=== PATIENT | male | born 1965 | race Hispanic/Latino ===

== ENCOUNTER 2017-08-07 16:00 | Emergency (ER) | payer SELFPAY ==
[2017-08-07] MEDS ORDERED: IBUPROFEN 600 MG TABLET ONE (16:33)
== END 2017-08-07 17:10 | disposition home or self-care (01) ==
LOC: EDH 16:00
DX: J09.X2 Influenza due to identified novel influenza A virus with other respiratory manifestations (principal); E11.9 Type 2 diabetes mellitus without complications; I10 Essential (primary) hypertension
CPT/HCPCS: 87804

== ENCOUNTER 2017-10-29 17:49 | Emergency (ER) | payer SELFPAY ==
[2017-10-29] MEDS ORDERED: ACETAMINOPHEN 325 MG TAB ONE (19:01)
[2017-10-29] MEDS ORDERED: ONDANSETRON HCL MDV 20ML 2 MG/ML VIAL ONE (19:01)
[2017-10-29] MEDS ORDERED: SODIUM CHLORIDE 0.9% 1000ML 1,000 ML IV ONE (19:01)
[2017-10-29 19:07] LABS: BASOPHILS % (AUTO) 0.1 % (0.0-5.0); EOSINOPHILS % (AUTO) 0.1 % (0.0-8.0); LYMPHOCYTES % (AUTO) 6.3 % (21.0-51.0); MEAN CORPUSCULAR HEMOGLOBIN 31.6 pg (27.0-33.0); MEAN CORPUSCULAR HGB CONC 35.5 g/dL (32.0-36.0); MEAN CORPUSCULAR VOLUME 89.1 fL (79-99); MONOCYTES % (AUTO) 3.8 % (3.0-13.0); NEUTROPHILS % (AUTO) 89.7 % (40.0-77.0); PLATELET COUNT (AUTO) 271 K/uL (130-400); RED BLOOD CELL COUNT(AUTO) 4.72 MIL/uL (4.50-6.20); RED CELL DISTRIBUTION WIDTH 13.6 % (11.0-15.5); WHITE BLOOD COUNT (AUTO) 13.1 K/uL (4.8-10.8)
[2017-10-29 19:14] LABS: CREATININE 1.1 mg/dL (0.5-1.5); POTASSIUM 4.2 mmol/L (3.5-5.1)
[2017-10-29 19:19] LABS: ALBUMIN 3.1 g/dL (3.5-5.0); BILIRUBIN,TOTAL 0.6 mg/dL (0.2-1.0)
== END 2017-10-29 20:15 | disposition home or self-care (01) ==
LOC: EDH 17:49
DX: R11.2 Nausea with vomiting, unspecified (principal); E11.65 Type 2 diabetes mellitus with hyperglycemia; R19.7 Diarrhea, unspecified; I10 Essential (primary) hypertension; Z79.82 Long term (current) use of aspirin; Z79.899 Other long term (current) drug therapy
CPT/HCPCS: 36415; 80053; 82948; 85025; 96361; 96374; 99284; J7030

== ENCOUNTER 2025-01-23 18:48 | Emergency (ER) | payer BC, MEDICAID ==
[~2025-01-23] VITALS: Ht 167.6 cm; Wt 78.9 kg
--- NOTE | 2025-01-23 18:58 | ERN ---
ED Note History of Present Illness Stated Complaint: DIZZINESS AND LOW BP Chief Complaint: Dizzy/Light Headed Time Seen by MD: 18:52 Dictation: PATIENT IS A 59-YEAR-OLD MALE COMING IN TODAY FROM [facility] WITH COMPLAINTS OF HAVING LOW BLOOD PRESSURE, 80/40 WHILE HE WAS AT HIS FAMILY'S HOUSE. HE STATES THE BLOOD PRESSURE WAS TAKEN WITH A BATTERY OPERATED WRIST MACHINE. STATES THEY WERE DOWN TO HER VISITING SAID THEY DID NOT GO TO THE HOSPITAL BECAUSE THEY DO NOT TAKE MEDICARE. HE STATES THEY LEFT A APPROXIMATE2 HOURS AGO AND CAME DIRECTLY TO THE HOSPITAL. STATES RIGHT NOW HE IS HAVING NO COMPLAINTS OF VOICE AT THIS TIME JUST WANTS TO BE CHECKED OUT. CURRENT BLOOD PRESSURE 140/80. Allergies: Coded Allergies: No Known Allergies (Unverified Allergy, Unknown, 07/12/23) Home Meds No Active Prescriptions or Reported Meds Past Medical History Past Medical History: Diabetes-Type II Additional Past Medical Hx: BLIND BILATERALLY Surgical History: Other Surgical History Other: RT KNEE Social History: Smokers, Lives with family RN Note Reviewed/Agreed w/PFSH: Yes Review of System Dictation CONSTITUTIONAL: NEGATIVE EXCEPT FOR HPI HEAD/FACE: NEGATIVE EXCEPT FOR HPI EENT: NEGATIVE EXCEPT FOR HPI RESPIRATORY: NEGATIVE EXCEPT FOR HPI GASTROINTESTINAL/ABDOMINAL: NEGATIVE EXCEPT FOR HPI GENITOURINARY: NEGATIVE EXCEPT FOR HPI MUSCULOSKELETAL: NEGATIVE EXCEPT FOR HPI INTEGUMENTARY: NEGATIVE EXCEPT FOR HPI NEUROLOGICAL/PSYCH: NEGATIVE EXCEPT FOR HPI LEGALLY BLIND/DIZZY HEMATOLOGIC/LYMPHATIC: NEGATIVE EXCEPT FOR HPI ALL SYSTEMS NEGATIVE, EXCEPT NOTED ABOVE. 13 POINT REVIEW OF SYSTEMS ASSESSED AND ALL NEGATIVE EXCEPT FOR ABOVE. Initial Vital Sign VS Vital Signs Date Time Temp Pulse Resp B/P (MAP) Pulse Ox O2 Delivery O2 Flow Rate FiO2 01/23/25 18:51 97.3 100 19 140/80 99 Room Air 0 Physical Exam Dictation VITAL SIGNS REVIEWED GENERAL APPEARANCE: ALERT, ORIENTED X 3, NO ACUTE DISTRESS, WELL DEVELOPED, NOURISHED. HEAD AND FACE: NON-TRAUMATIC. EYES: BLIND, CHRONIC EARS: PINNAS INTACT AND NO SIGNS OF TRAUMA OR ERYTHEMA EAR CANALS CLEAR AND NO DISCHARGE TM NO ERYTHEMA NOSE: NO DISCHARGE, NO BLEEDING. OROPHARYNX: MOUTH NORMAL, TONGUE PINK, PHARYNX CLEAR,NO ERYTHEMA, TONSILS NO EXUDATES, NO ABSCESSES NOTED, MUCOUS MEMBRANE MOIST NECK: SUPPLE, NON-TENDER, NO THYROMEGALY, NO MASSES, NO JVD, NO BRUITS BREAST:DEFERRED CHEST:NO TENDERNESS, NO CREPITUS, NO PARADOXICAL MOVEMENT, NO RETRACTIONS LUNGS:CLEAR, WELL-VENTILATED, SYMMETRIC, NO RALES, NO WHEEZING, NO RHONCHI, NO STRIDOR, GOOD BREATH SOUNDS BILATERALLY HEART: REGULAR RATE, REGULAR RHYTHM, NO MURMUR, NO GALLOPS VASCULAR: NO PERIPHERAL EDEMA, ABDOMEN: SOFT, POSITIVE BOWEL SOUNDS, NONDISTENDED, NO GUARDING, NONTENDER, NO REBOUND, NO MASSES NO HEPATOMEGALY, NO SPLENOMEGALY, NO BECKHAM'S SIGN, NO HERNIAS. RECTAL: DEFERRED GENITAL: DEFERRED NEUROLOGICAL: NORMAL SPEECH, MOTOR FUNCTION INTACT, SENSORY FUNCTION INTACT MUSCULOSKELETAL: NECK NONTENDER, FULL RANGE OF MOTION, BACK NONTENDER, FULL RANGE OF MOTION, EXTREMITIES: NONTENDER, FULL RANGE OF MOTION SKIN: COLOR PINK, DRY, NO TURGOR, NO RASH, NO LACERATIONS, NO ABRASIONS, NO CONTUSIONS. LYMPHATIC: DEFERRED Results (Laboratory/Radiology) Laboratory/Radiology Laboratory Tests Test 01/23/25 19:35 White Blood Count 9.0 K/uL (4.8-10.8) Red Blood Count 3.27 MIL/uL (4.50-6.20) L Hemoglobin 10.2 g/dL (14.0-18.0) L Hematocrit 31.0 % (42-54) L Mean Corpuscular Volume 94.8 fL (79-99) Mean Corpuscular Hemoglobin 31.2 pg (27.0-33.0) Mean Corpuscular Hemoglobin Concent 32.9 g/dL (32.0-36.0) Red Cell Distribution Width 13.9 % (11.0-15.5) Platelet Count 262 K/uL (130-400) Mean Platelet Volume 10.2 fL (7.5-10.5) Immature Granulocyte % (Auto) 0.2 % (0-1) Neutrophils (%) (Auto) 59.5 % (40.0-77.0) Lymphocytes (%) (Auto) 29.4 % (21.0-51.0) Monocytes (%) (Auto) 9.3 % (3.0-13.0) Eosinophils (%) (Auto) 1.2 % (0.0-8.0) Basophils (%) (Auto) 0.4 % (0.0-5.0) Neutrophils # (Auto) 5.3 K/uL (1.8-7.7) Lymphocytes # (Auto) 2.6 K/uL (1.0-4.8) Monocytes # (Auto) 0.8 K/uL (0.1-1.0) Eosinophils # (Auto) 0.11 K/uL (0.00-0.70) Basophils # (Auto) 0.04 K/uL (0.00-0.20) Absolute Immature Granulocyte (auto 0.02 K/uL (0-1) Nucleated Red Blood Cells 0.0 % (0.0-0.19) Sodium Level 138 mmol/L (136-145) Potassium Level 4.8 mmol/L (3.5-5.1) Chloride Level 103 mmol/L (101-111) Carbon Dioxide Level 25 mmol/L (21-32) Blood Urea Nitrogen 38 mg/dL (7-18) H Creatinine 2.3 mg/dL (0.5-1.3) H Glomerular Filtration Rate Calc 32 mL/min (>90) Random Glucose 105 mg/dL (70-105) Total Calcium 9.6 mg/dL (8.5-10.1) Magnesium Level 1.90 mg/dL (1.80-2.40) Troponin I High Sensitivity 4 ng/L (4-75) Labs Reviewed?: Yes EKG: (+) NSR EKG Comment: EKG NORMAL SINUS RHYTHM/HEART RATE 97/AXIS NORMAL/NO ECTOPY ED Course ED Course Orders Procedure Category Date Status Time Cbc With Differential LAB 01/23/25 Complete 18:55 12 Lead Ekg Tracing- EKG 01/23/25 Logged Technical 18:55 Magnesium LAB 01/23/25 Complete 18:55 Troponin I High LAB 01/23/25 Complete Sensitivity 18:55 Basic Metabolic Panel LAB 01/23/25 Complete 18:55 Vital Signs Date Time Temp Pulse Resp B/P (MAP) Pulse Ox O2 Delivery O2 Flow Rate FiO2 01/23/25 18:51 97.3 100 19 140/80 99 Room Air 0 2024/WITH PATIENT AND HIS SON AT LENGTH REGARDING CLINICAL FINDINGS. HE IS AWARE THAT HE HAS HAD AN ACUTE ON CHRONIC KIDNEY INJURY CURRENT GFR IS 32%. HE WAS ALSO MADE AWARE THAT WHEN HE WAS HERE JUNE 2023 IT WAS 98%. HE STATES HIS DOCTOR GAVE HIM DIURETICS BECAUSE HE WAS HAVING SOME SWELLING IN THE LEGS AND HE HAS BEEN TAKING HIM SINCE LAST YEAR. I RECOMMENDED STRONGLY TO ADMIT HIM TO THE HOSPITAL HOWEVER HE DECIDED HE DID NOT WANT TO STAY IN THE HOSPITAL AND WISHES TO GO HOME AND WE WILL FOLLOW UP WITH HIS PRIMARY CARE DOCTOR ON SUNDAY. I STRONGLY ADVISED HIM TO FOLLOW UP WITH HIS DOCTOR TAKE HER LABS WITH HIM AND THAT HE MAY NEED AND NEPHROLOGY REFERRAL IN VERY NEAR FUTURE. HEART Score Response (Comments) Value History: Low suspicion (0) 0 EKG: Normal 0 Age: 45-65yrs (+1) 1 Risk Factors: 1-2 risk factors (+1) 1 Initial Troponin: Normal limit (0) 0 Total 2 Medical Decision Making MDM MDM: DIFFERENTIAL DIAGNOSIS: ACS/AMI/ELECTROLYTE IMBALANCE/DEHYDRATION RATIONALE: TESTS CONSIDERED AND ORDERED SECONDARY TO SHARED DECISION MAKING INCLUDE: EKG/LABS PREVIOUS OUTSIDE RECORDS REVIEWED: OLD ER VISITS. RISK OF COMPLICATION AND/OR MORBIDITY OR MORTALITY OF PATIENT MANAGEMENT: NONE MEDICATIONS-PER MEDICATION RECONCILIATION NEED FOR HOSPITALIZATION: PATIENT DOES NOT MEET CRITERIA FOR HOSPITALIZATION. PATIENT REFUSED ADMISSION AT THIS TIME, HE IS AWARE THAT HE HAS A AN ACUTE KIDNEY INJURY NEED FOR EMERGENCY MAJOR/MINOR SURGERY: NO THERE ARE NO SOCIAL CONCERNS WITH THIS PATIENT. PRESCRIPTION DRUG MANAGEMENT NONE PRESCRIPTIONS WILL INCLUDE SYMPTOMATIC CARE PATIENT'S PRIOR EXTERNAL MEDICAL RECORDS FROM OTHER ER VISITS WERE REVIEWED BY ME INDICATED. PRIOR TESTING AND RESULTS FROM PREVIOUS VISITS WERE REVIEWED. PRIOR TESTS WERE TAKEN INTO ACCOUNT WITH MEDICAL DECISION MAKING AND RESOURCE UTILIZATION, INDEPENDENT HISTORIAN/HISTORIANS WERE USED TO OBTAIN COMPLETE MEDICAL HISTORY. I INDEPENDENTLY INTERPRETED THE TEST THAT WERE PERFORMED, RESULTS WERE REVIEWED BY ME AND CONSIDERED FINDINGS ON RADIOLOGY IF ORDERED. MEDICAL MANAGEMENT AND EXAMINATION INTERPRETATION DISCUSSIONS WERE HAD BY ME WITH OTHER QUALIFIED HEALTHCARE PROFESSIONALS INDICATED FOR THE PATIENT'S CARE. DX & DISP Disposition: Discharge Departure Impression: Primary Impression: Acute kidney injury Additional Impression: Blind in both eyes Condition: Stable Scripts No Active Prescriptions or Reported Meds Additional Instructions: FOLLOW-UP WITH PRIMARY CARE PROVIDER IN 1 TO 2 DAYS. TAKE MEDICATIONS DIRECTED HERE IN THE EMERGENCY ROOM. OKAY TO CONTINUE HOME MEDICATIONS UNLESS OTHERWISE DISCUSSED DURING YOUR VISIT IN THE EMERGENCY ROOM TODAY. RETURN TO YOUR NEAREST EMERGENCY ROOM IF SYMPTOMS WORSEN OR IF THERE IS NO IMPROVEMENT. CALL 911 IF YOU NEED IMMEDIATE ASSISTANCE. TAKE TYLENOL OR MOTRIN [id number] NEEDED AND IF NO CONTRAINDICATIONS ARE PRESENT. INCREASE ORAL HYDRATION. A WOUND CULTURE OR URINE CULTURE WAS ORDERED HERE IN THE EMERGENCY ROOM DEPARTMENT PLEASE FOLLOW-UP WITH PRIMARY CARE PROVIDER AND ADVISE THEM TO GET REPEAT PORTS FROM OUR FACILITY. IF YOU HAD ANY PAULINO WRAP/SPLINTS THAT WERE APPLIED HERE, PLEASE DO NOT REMOVE THEM UNTIL YOU SEE YOUR PRIMARY CARE OR SPECIALTY. SEE YOUR PRIMARY CARE DOCTOR ON SUNDAY WITHOUT FAIL FOR YOUR ACUTE KIDNEY INJURY AND REFERRAL TO NEPHROLOGY. TURNED TO THE EMERGENCY ROOM IF ANY OTHER PROBLEMS OR COMPLAINTS. Referrals: SELF,REFERRAL (PCP) Time of Disposition: 20:26 I have reviewed the case, and I agree with, Diagnosis and Plan SOO SCOTT NP Jan 23, 2025 18:58
[2025-01-23 19:44] LABS: IMMATURE GRANULOCYTE ABSOLUTE 0.02 K/uL (0-1); NUCLEATED RED BLOOD CELLS 0.0 % (0.0-0.19); PLATELET COUNT (AUTO) 262 K/uL (130-400); RED BLOOD CELL COUNT(AUTO) 3.27 MIL/uL (4.50-6.20); RED CELL DISTRIBUTION WIDTH 13.9 % (11.0-15.5); WHITE BLOOD COUNT (AUTO) 9.0 K/uL (4.8-10.8)
[2025-01-23 19:56] LABS: CREATININE 2.3 mg/dL (0.5-1.3); GLOMERULAR FILTR. RATE CALC 32.0 mL/min (>90); GLUCOSE,RANDOM 105.0 mg/dL (70-105); SODIUM SERUM 138.0 mmol/L (136-145); UREA NITROGEN, BLOOD 38.0 mg/dL (7-18)
[2025-01-23 20:22] VITALS: BP 140/80; PULSE 90; RESP 16; TEMP 98.1; O2SAT 98
--- NOTE | 2025-01-24 09:37 | EKG ---
[facility] Test Date: 2025-01-23 Test Time: 18:59:19 Pat Name: LAISHA SINGER Department: ED Room: Gender: Supervisor Soakers: [id number] : [id number] Requested By: SOO SCOTT Order Number: [id number] Reading MD: David Carey Measurements Intervals [place] Rate: 97 P: 49 FL: 174 QRS: -20 QRSD: 95 T: 72 QT: 352 QTc: 448 Interpretive Statements Sinus rhythm Compared to ECG 07/12/2023 15:07:16 No significant changes Electronically Signed On 01-25-2025 11:03:27 CDT by David Carey Please click the below link to view image of tracing.
== END 2025-01-23 20:54 | disposition home or self-care (01) ==
LOC: EDH 18:48
DX: N17.9 Acute kidney failure, unspecified (principal); H54.3 Unqualified visual loss, both eyes; E11.9 Type 2 diabetes mellitus without complications; F17.200 Nicotine dependence, unspecified, uncomplicated; Z98.890 Other specified postprocedural states
CPT/HCPCS: 36415; 80048; 83735; 84484; 85025; 93005; 99284